=== PATIENT | male | born 1970 | race Caucasian/White ===

== ENCOUNTER 2016-06-19 19:32 | Emergency (ER) | payer OTHER ==
[~2016-06-19] VITALS: Ht 190.5 cm; Wt 86.5 kg
[~2016-06-19 19:32] MED LIST: BACT800T5 PO; PALI234P IM
[2016-06-19 19:35] VITALS: BP 120/65; PULSE 56; RESP 16; TEMP 97.4; O2SAT 96
--- NOTE | 2016-06-19 20:04 | PD ---
HPI Chief Complaint: Anxiety Time Seen by Provider: 19:59 Travel History International Travel<30 days: No Contact w/Intl Traveler<30days: No Traveled to known affect area: No History of Present Illness HPI Patient comes in requesting psychiatric evaluation. Patient states he's been out of his PTSD/schizoaffective medication for approximately 3 weeks and is feeling more stressed, anxious, has had thoughts of harming himself but denies any plan or previous history of self-harm. Patient states he tired of being homeless and having to go through multiple channels with nothing being done. Patient reports only other medical concerns is intermittent gassy crampy pains and his left lower quadrant for over a week. Patient states pain comes and goes. Denies anything making it better or worse. Denies any nausea, vomiting, diarrhea, blood in stool, recent antibiotic use, chest pain, shortness of breath , back pain, or radiation of the pain. Patient states he normally gets medication from [facility] and has a follow-up appointment with them tomorrow but did not want to wait to be seen until then. PFSH Past Medical History Arthritis: No Autoimmune Disease: No Bipolar Disorder: Yes Anxiety: Yes Depression: Yes Cancer: No Cardiovascular Problems: No Cerebrovascular Accident: Yes (TBI) Diabetes: No Diminished Hearing: No Endocrine: No Genitourinary: No Headaches: No Immune Disorder: No Implanted Vascular Access Dvce: No Musculoskeletal: No Neurologic: No Psychiatric: Yes Reproductive: No Respiratory: No Immunizations Current: Yes Migraines: No Schizophrenia: Yes (SCHIZOAFFECTIVE D/O) Seizures: No Past Surgical History Abdominal Surgery: No Cardiac Surgery: No Ear Surgery: No Endocrine Surgery: No Eye Surgery: No Genitourinary Surgery: No Gynecologic Surgery: No Oral Surgery: No Thoracic Surgery: No Other Surgery: Yes (FACIAL RECONSTRUCTION 1995) Social History Alcohol Use: Yes (BEER 90 days ago. ) Tobacco Use: Yes (2 ppd) Substance Use: Yes (MARIJUANA, COCAINE, FLAKKA) Allergies-Medications (Allergen,Severity, Reaction): Coded Allergies: No Known Allergies (Verified , 06/19/16) Reported Meds & Prescriptions Reported Meds & Active Scripts Active Bactrim DS (Sulfamethoxazole-Trimethoprim) 800-160 Mg Tab 1 Tab PO BID Reported Invega Sustenna Inj (Paliperidone Palmitate) 234 Mg/1.5 Ml Inj 234 Mg IM Q28D Review of Systems Except as stated in HPI: all other systems reviewed are Neg Physical Exam Narrative GENERAL: Well-developed, well nourished, in no acute distress, and non-ill appearing. SKIN: Warm and dry. HEAD: Atraumatic. Normocephalic. EYES: Pupils equal and round. EOMI. No scleral icterus. No injection or drainage. ENT: No nasal bleeding or discharge. Mucous membranes pink and moist. NECK: Trachea midline. Supple. No nuclear rigidity. CARDIOVASCULAR: Regular rate and rhythm. No murmur appreciated. RESPIRATORY: No accessory muscle use. No respiratory distress. Wheezing noted throughout. Breath sounds equal bilaterally. GASTROINTESTINAL: Abdomen soft, non-tender, nondistended. Hepatic and splenic margins not palpable. Normal bowel sounds 4. No pulsatile mass. MUSCULOSKELETAL: No obvious deformities. No clubbing. No cyanosis. No edema. Full range of motion. NEUROLOGICAL: Awake and alert. No obvious cranial nerve deficits. Motor grossly within normal limits. Normal speech. PSYCHIATRIC: Appropriate mood and affect; insight and judgment normal. Data Data Last Documented VS Vital Signs Date Time Temp Pulse Resp B/P Pulse Ox O2 Delivery O2 Flow Rate FiO2 06/19/16 19:35 97.4 56 16 120/65 96 Room Air Orders Complete Blood Count With Diff (06/19/16 19:56) Comprehensive Metabolic Panel (06/19/16 19:56) Psych Screen (06/19/16 19:56) Drug Screen, Random Urine (06/19/16 19:56) Alcohol (Ethanol) (06/19/16 19:56) Salicylates (Aspirin) (06/19/16 19:56) Tylenol (Acetaminophen) (06/19/16 19:56) Urinalysis - C+S If Indicated (06/19/16 20:01) Labs Laboratory Tests Test 06/19/16 06/19/16 20:07 20:16 White Blood Count 6.9 TH/MM3 Red Blood Count 4.27 MIL/MM3 Hemoglobin 14.1 GM/DL Hematocrit 39.9 % Mean Corpuscular Volume 93.3 FL Mean Corpuscular Hemoglobin 33.1 PG Mean Corpuscular Hemoglobin 35.4 % Concent Red Cell Distribution Width 13.7 % Platelet Count 170 TH/MM3 Mean Platelet Volume 9.2 FL Neutrophils (%) (Auto) 50.6 % Lymphocytes (%) (Auto) 36.0 % Monocytes (%) (Auto) 8.9 % Eosinophils (%) (Auto) 3.7 % Basophils (%) (Auto) 0.8 % Neutrophils # (Auto) 3.5 TH/MM3 Lymphocytes # (Auto) 2.5 TH/MM3 Monocytes # (Auto) 0.6 TH/MM3 Eosinophils # (Auto) 0.3 TH/MM3 Basophils # (Auto) 0.1 TH/MM3 CBC Comment DIFF FINAL Differential Comment Sodium Level 140 MEQ/L Potassium Level 3.9 MEQ/L Chloride Level 103 MEQ/L Carbon Dioxide Level 29.0 MEQ/L Anion Gap 8 MEQ/L Blood Urea Nitrogen 12 MG/DL Creatinine 1.03 MG/DL Estimat Glomerular Filtration 78 ML/MIN Rate Random Glucose 76 MG/DL Calcium Level 8.9 MG/DL Total Bilirubin 0.3 MG/DL Aspartate Amino Transf 21 U/L (AST/SGOT) Alanine Aminotransferase 28 U/L (ALT/SGPT) Alkaline Phosphatase 75 U/L Total Protein 6.7 GM/DL Albumin 3.6 GM/DL Salicylates Level 5.1 MG/DL Acetaminophen Level LESS THAN 2.0 MCG/ML Ethyl Alcohol Level 25 MG/DL Urine Color YELLOW Urine Turbidity CLEAR Urine pH 6.5 Urine Specific [place] 1.015 Urine Protein NEG mg/dL Urine Glucose (UA) NEG mg/dL Urine Ketones NEG mg/dL Urine Occult Blood NEG Urine Nitrite NEG Urine Bilirubin NEG Urine Urobilinogen 2.0 MG/DL Urine Leukocyte Esterase NEG Urine RBC LESS THAN 1 /hpf Urine WBC 1 /hpf Urine Bacteria RARE /hpf Urine Hyaline Casts 1 /lpf Urine Mucus FEW /lpf Microscopic Urinalysis Comment CULT NOT INDICATED Urine Opiates Screen NEG Urine Barbiturates Screen NEG Urine Amphetamines Screen NEG Urine Benzodiazepines Screen NEG Urine Cocaine Screen NEG Urine Cannabinoids Screen POS MDM Medical Decision Making Medical Screen Exam Complete: Yes Emergency Medical Condition: Yes Differential Diagnosis Schizoaffective disorder, suicidal, adjustment disorder, malingering, other Narrative Course Patient was seen and examined. Labs were obtained and reviewed. Patient medically cleared for further treatment and evaluation by psych. Final disposition per psych. Patient has psychiatric screening performed by psychiatrist nurse who contacted [facility] reports patient is able to follow up there tomorrow for his and a shot as scheduled. The patient presented with nonspecific abdominal pain. There was no significant history of vomiting or diarrhea and no fever. The patient appeared comfortable, well hydrated and the abdominal exam was unremarkable and nontender to me. Laboratory evaluation revealed no significant abnormalities. There was no evidence of an acute, surgical abdomen at this time. There was no clinical evidence to support appendicitis, bowel obstruction, cholecystitis/ cholelithiasis, pancreatitis, perforation of gastric ulcer, colitis, diverticulitis, bacterial peritonitis, obstruction, volvulus, hernial incarceration or strangulation at this time. There was no evidence to support vascular pathology such as AAA, mesenteric ischemia. There was also no clinical evidence by history, exam or risk factors to suggest atypical presentation of cardiac disease such as ACS, AMI or atypical angina. No evidence to suggest genitourinary etiology as well. Clinical picture was discussed with the patient , as well as plan of care. The patient was instructed to follow up with their physician. Abdominal pain warnings were discussed with the patient. The patient is to return if worsens, pain worsens or changes, develop fever, inability to tolerate fluids with or without vomiting, unable to establish follow up or as needed. The patient agrees with plan. Patient in no obvious distress upon re-evaluation. All pertinent laboratory result(s) discussed with patient. Discussed patient with Dr. Hull, prior to discharge, who is in agreement with plan of care and disposition. Any questions /concerns in reference to patient diagnosis/condition discussed and clarified prior to patient's discharge. Reinforced sheer importance of close follow up with patient's primary physician or primary care clinic. Instructed patient to return to ED immediately, if symptoms return/worsen. Pt showed understanding of above instructions. Further instructions and recommendations were detailed in discharge paperwork. Pt ambulated without difficulty out of ED at discharge. Diagnosis Primary Impression: Schizoaffective disorder Qualified Code: F25.9 - Schizoaffective disorder, unspecified type Additional Impression: Abdominal pain Qualified Code: R10.32 - Left lower quadrant pain [facility]: [facility] Patient Instructions: Abdominal Pain (ED), General Instructions Additional Instructions: Follow-up with [facility] tomorrow as scheduled for your medication. Follow-up with primary care provider or ciso next week for reevaluation of your left lower abdominal pain. Return to emergency for for any emergent concerns. Disposition: 01 DISCHARGE HOME Condition: Stable Keaton Lubin Jun 19, 2016 20:04
[2016-06-19 20:32] LABS: AUTOMATED NEUTROPHIL # 3.5 TH/MM3 (1.8-7.7); BASOPHIL # 0.1 TH/MM3 (0-0.2); BASOPHIL % 0.8 % (0.0-2.0); EOSINOPHIL # 0.3 TH/MM3 (0-0.4); EOSINOPHIL % 3.7 % (0.0-4.0); HEMATOCRIT 39.9 % (39.0-51.0); HEMO FLAGS DIFF FINAL; LYMPHOCYTE # 2.5 TH/MM3 (1.0-4.8); MEAN CELL VOLUME 93.3 FL (80.0-100.0); MEAN CORPUSCULAR HEMOGLOBIN 33.1 PG (27.0-34.0); MEAN CORPUSCULAR HGB CONC 35.4 % (32.0-36.0); MONO % 8.9 % (0.0-8.0); NEUT % 50.6 % (16.0-70.0); PLATELET COUNT 170 TH/MM3 (150-450); RED BLOOD COUNT 4.27 MIL/MM3 (4.50-5.90); RED CELL DISTRIBUTION WIDTH 13.7 % (11.6-17.2); WHITE BLOOD COUNT 6.9 TH/MM3 (4.0-11.0)
[2016-06-19 20:38] LABS: BACTERIA, URINE RARE /hpf; BLOOD, URINE NEG (NEG); COMMENT (UR) CULT NOT INDICATED; CULTURE IF INDICATED CULT NOT INDICATED; GLUCOSE,URINE NEG (NEG); HYALINE CAST, URINE 1 /lpf (RARE); KETONE, URINE NEG (NEG); MUCUS URINE FEW /lpf (OCC); NITRITE,URINE NEG (NEG); PH, URINE 6.5 (5.0-8.5); URINE COLOR YELLOW (YELLW/STRAW)
[2016-06-19 20:41] LABS: AMPHETAMINE, URINE NEG (NEG); BARBITURATES, URINE NEG (NEG); COCAINE, URINE NEG (NEG)
[2016-06-19 20:55] LABS: ACETAMINOPHEN LESS THAN 2.0 MCG/ML (10.0-30.0); ALKALINE PHOSPHATASE 75 U/L (45-117); ALT (GPT) 28 U/L (12-78); ANION GAP 8 MEQ/L (5-15); AST (GOT) 21 U/L (15-37); BLOOD UREA NITROGEN 12 MG/DL (7-18); CHLORIDE 103 MEQ/L (98-107); GLOMERULAR FILTRATION RATE 78 ML/MIN (>89); POTASSIUM 3.9 MEQ/L (3.5-5.1); SODIUM (NA) 140 MEQ/L (136-145); TOTAL BILIRUBIN ADULT 0.3 MG/DL (0.2-1.0)
== END 2016-06-19 22:41 | disposition home or self-care (01) ==
LOC: NEPB 19:32
DX: F25.9 Schizoaffective disorder, unspecified (principal); R10.32 Left lower quadrant pain; Z59.0 Homelessness; F31.9 Bipolar disorder, unspecified; F43.10 Post-traumatic stress disorder, unspecified; F41.9 Anxiety disorder, unspecified; F17.210 Nicotine dependence, cigarettes, uncomplicated; F14.10 Cocaine abuse, uncomplicated; F12.10 Cannabis abuse, uncomplicated
CPT/HCPCS: 80053; 80307; 81001; 85025; 99284

== ENCOUNTER 2017-07-22 05:46 | Emergency (ER) | payer OTHER ==
[~2017-07-22] VITALS: Ht 190.5 cm; Wt 75.0 kg
[~2017-07-22 05:46] MED LIST changes: +GABA300C5 PO
[2017-07-22 05:50] VITALS: BP 139/92; PULSE 78; RESP 18; TEMP 97.7
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
[2017-07-22] MEDS ORDERED: KETOROLAC TROMETHAMINE 60 MG/2 ML (IM) VIAL IM ONE (06:15)
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
== END 2017-07-22 07:29 ==
LOC: NEPD 05:46
DX: S09.90XA Unspecified injury of head, initial encounter (principal); S20.211A Contusion of right front wall of thorax, initial encounter; S00.01XA Abrasion of scalp, initial encounter; S00.11XA Contusion of right eyelid and periocular area, initial encounter; S00.81XA Abrasion of other part of head, initial encounter; F31.9 Bipolar disorder, unspecified; J44.9 Chronic obstructive pulmonary disease, unspecified; F25.9 Schizoaffective disorder, unspecified; Y04.0XXA Assault by unarmed brawl or fight, initial encounter
CPT/HCPCS: 70450; 71046; 96372; 99284; J1885